=== PATIENT | female | born 2000 | race Hispanic/Latino ===

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

== ENCOUNTER 2024-06-11 06:36 | Inpatient (IN) | payer OTHER ==
[~2024-06-11] VITALS: Ht 154.9 cm; Wt 87.1 kg
[2024-06-11 07:30] LABS: HEMATOCRIT 36.3 % (35.0-50.0); HEMOGLOBIN 12.7 g/dL (12.0-18.0); MCH 31.7 (27-36); MCHC 35.1 g/dl (30-36); MCV 90.4 fl (81-99); RBC 4.02 M/ul (4.3-5.7); RDW 13.4 (10.5-15.0)
[2024-06-11] MEDS ORDERED: CALCIUM CARBONATE 500 MG CHEW PO PRN ×2 (07:30→16:30)
[2024-06-11] MEDS ORDERED: LACTATED RINGER'S 1,000 ML IV PRN (07:30)
[2024-06-11] MEDS ORDERED: OXYTOCIN/0.9 % SODIUM CHLORIDE 30 UNITS/500 ML BAG IV SCH (07:30)
[2024-06-11] MEDS ORDERED: MAGNESIUM HYDROXIDE/AL HYDROX 30 ML CUP PO PRN ×2 (07:30→16:30)
[2024-06-11 07:39] VITALS: BP 128/81
[2024-06-11 08:02] LABS: ABO A; ANTIBODY SCREEN NEGATIVE; RH POSITIVE
[2024-06-11 08:13] LABS: AMPHETAMINES, URINE NEGATIVE (NEGATIVE); BARBITURATES, URINE NEGATIVE (NEGATIVE); BENZODIAZEPINE, URINE NEGATIVE (NEGATIVE); BUPRENORPHINE, URINE NEGATIVE (NEGATIVE); CANNABINOID, URINE NEGATIVE (NEGATIVE); COCAINE, URINE NEGATIVE (NEGATIVE); ECSTASY, URINE NEGATIVE (NEGATIVE); FENTANYL, URINE NEGATIVE (NEGATIVE); METHADONE, URINE NEGATIVE (NEGATIVE); OPIATES, URINE NEGATIVE (NEGATIVE); OXYCODONE, URINE NEGATIVE (NEGATIVE); PHENCYCLIDINE, URINE NEGATIVE (NEGATIVE)
[2024-06-11] MEDS ORDERED: OXYTOCIN/0.9 % SODIUM CHLORIDE 500 ML IV SCH ×2 (11:30→16:30)
[2024-06-11] MEDS ORDERED: ROPIVACAINE 0.2% 200 ML BAG ONE (13:15)
[2024-06-11] MEDS ORDERED: fentaNYL citrate 100 MCG/2 ML VIAL ONE (13:15)
--- NOTE | 2024-06-11 13:58 | PR ---
[facility] [address], [place] [address] Signed Progress Notes IP Datetime Report Generated by CPAdia: 06/11/2024 13:58 PROGRESS NOTES: [id number] Impression: Normal Progression of Labor; Reassuring Heart Rate Procedures: Sterile Vag Exam Plan: Continue Present Management Other Plans: s/p epidural placement by INSURANCE TERRITORY MANAGER Informed Consent Obtain: Vaginal Delivery VITAL SIGNS: [id number] Vital Signs: Reviewed; Within Normal Limits EXAM: [id number] Dilatation: 3.0 Effacement: 80 Station: -3 Contractions: q 3-4 min MEMBRANES: [id number] ROM Note: leaking large amounts of clear fluid. Comments: Pt seen and examined. Doing well. Uncomfortable w/ contractions and desired epidural which was kindly placed by anesthesia. More comfortable. Pitocin at 4. No questions or concerns. Will continue pitocin. Reviewed anticipated course of labor / delivery FETUS A: [id number] FHR Baseline: 125 Variability: Moderate 6-25bpm Accelerations: 15X15 Decelerations: None FHR Category: Category I Presentation: Vertex Comments on Fetus A: No evidence of metabolic acidosis FETUS B: [id number] Signing Physician: Srinivasa Cross DO Copies: ~ *Electronically Signed* 06/11/24 3070 SRINIVASA CROSS (DOMINIC) DO PATIENT NAME: JOSEE GOLDMAN PROGRESS NOTE DATE OF : 00 PHYSICIAN: SRINIVASA CROSS (JD) DO RPT #: [id number] REPORT IS CONFIDENTIAL AND NOT TO BE RELEASED WITHOUT AUTHORIZATION
[2024-06-11] MEDS ORDERED: ROPIVACAINE 0.2% 200 ML BAG EPIDURAL SCH (14:00)
[2024-06-11] MEDS ORDERED: LACTATED RINGER'S 500 ML IV PRN (14:00)
[2024-06-11] MEDS ORDERED: LACTATED RINGER'S 2,000 ML IV ONE (14:00)
[2024-06-11] MEDS ORDERED: ePHEDrine sulfate 5 MG/ML SYRINGE IV PRN (14:00)
[2024-06-11] MEDS ORDERED: ePHEDrine KIT FOR FBC IV ONE (14:57)
--- NOTE | 2024-06-11 15:41 | PR ---
[facility] [address], [place] [address] Signed Progress Notes IP Datetime Report Generated by CPN: 06/11/2024 15:41 PROGRESS NOTES: [id number] Impression: Normal Progression of Labor; Reassuring Heart Rate Procedures: Sterile Vag Exam Plan: Anticipate Vaginal Delivery Other Plans: s/p epidural placement by SENIOR PROJECT COORDINATOR Informed Consent Obtain: Vaginal Delivery VITAL SIGNS: [id number] Vital Signs: Reviewed; Within Normal Limits EXAM: [id number] Dilatation: 10.0 Effacement: 100 Station: 0 Contractions: q 2-3 MEMBRANES: [id number] ROM Note: leaking large amounts of clear fluid. Comments: Pt seen and examined. Complete and feeling some pressure to push. Will set up for vaginal delivery. Anticipate soon FETUS A: [id number] FHR Baseline: 125 Variability: Moderate 6-25bpm Accelerations: 15X15 Decelerations: Early; Late FHR Category: Category II Presentation: Vertex Comments on Fetus A: No evidence of metabolic acidosis FETUS B: [id number] Signing Physician: Srinivasa Cross DO Copies: ~ *Electronically Signed* 06/11/24 1545 SRINIVASA CROSS (DOMINIC) DO PATIENT NAME: JSOEE GOLDMAN PROGRESS NOTE DATE OF : 00 PHYSICIAN: SRINIVASA CROSS (JD) DO RPT #: [id number] REPORT IS CONFIDENTIAL AND NOT TO BE RELEASED WITHOUT AUTHORIZATION
[2024-06-11] MEDS ORDERED: IBUPROFEN 600 MG TAB PO PRN (16:30)
[2024-06-11] MEDS ORDERED: HYDROCORTISONE ACETATE 25 MG SUPP PR PRN (16:30)
[2024-06-11] MEDS ORDERED: ACETAMINOPHEN 325 MG TAB PO PRN (16:30)
[2024-06-11] MEDS ORDERED: HYDROCODONE/ACETA 5/325 TAB PO PRN (16:30)
[2024-06-11] MEDS ORDERED: MAGNESIUM HYDROXIDE 30 ML UDC PO PRN (16:30)
[2024-06-11] MEDS ORDERED: OXYCODONE/APAP 5/325 TAB PO PRN (16:30)
[2024-06-11] MEDS ORDERED: WITCH HAZEL/GLYCERIN 1 EA PAD TOP PRN (16:30)
[2024-06-11] MEDS ORDERED: BENZOCAINE 60 ML AEROSOL TOP PRN (16:30)
[2024-06-11] MEDS ORDERED: SENNOSIDES/DOCUSATE 1 EA TAB PO SCH (21:00)
[2024-06-12 05:22] LABS: HEMATOCRIT 31.4 % (35.0-50.0); HEMOGLOBIN 10.8 g/dL (12.0-18.0); MCH 31.2 (27-36); MCHC 34.5 g/dl (30-36); MCV 90.4 fl (81-99); RBC 3.47 M/ul (4.3-5.7); RDW 13.2 (10.5-15.0)
--- NOTE | 2024-06-12 16:09 | PR ---
[facility] [address] [facility] [place], [place] [address] Signed PP Progress Notes Datetime Report Generated by CPN: 06/12/2024 16:09 SUBJECTIVE: [id number] Pain: Within Normal Limits Nausea/Vomiting: Denies Flatus: Yes Bowel Movement: No Vital Signs: [id number] Vital Signs: Reviewed; Within Normal Limits Cardiovascular: Normal Respiratory: Normal Abdomen/Uterus: Normal Lochia: Normal Vulva/Perineum: Not Done Breasts: Not Done CVA Tenderness: Normal Extremities: Normal Incision: Not Applicable Progress: Normal Exam Comments: Fundus firm U-2 nontender IMPRESSION/PLAN/PROCEDURES: [id number] Impression: Normal Progression Plan: Discharge Progress Notes: Pt seen and examined. Doing well. Ambulating, voiding, and tolerating full diet. Pain and lochia minimal. well. No fevers/chills or concerns. Desires d/c home today. Reviewed d/c instructions and medications. Planning IUD for pp contraception. All questions answered Signing Physician: Srinivasa Cross DO Copies: ~ *Electronically Signed* 06/12/24 3327 SRINIVASA CROSS (DOMINIC) DO PATIENT NAME: JOSEE GOLDMAN PROGRESS NOTE DATE OF : 00 PHYSICIAN: SRINIVASA CROSS (JD) DO RPT #: [id number] REPORT IS CONFIDENTIAL AND NOT TO BE RELEASED WITHOUT AUTHORIZATION
== END 2024-06-12 17:45 | disposition home or self-care (01) | DRG 807 ==
LOC: FBCO 06:36 → FBC 07:24
PROVIDERS: ADMIT Obstetrics & Gynecology; ATTEND Obstetrics & Gynecology
PROC: 10E0XZZ Delivery of Products of Conception, External Approach (ICD-10-PCS; principal; 2024-06-11)
PROC: 3E0R3BZ Introduction of Anesthetic Agent into Spinal Canal, Percutaneous Approach (ICD-10-PCS; 2024-06-11)
PROC: 00HU33Z Insertion of Infusion Device into Spinal Canal, Percutaneous Approach (ICD-10-PCS; 2024-06-11)
PROC: 0HQ9XZZ Repair Perineum Skin, External Approach (ICD-10-PCS; 2024-06-11)
DX: O69.1XX0 Labor and delivery complicated by cord around neck, with compression, not applicable or unspecified (principal); Z37.0 Single live birth; O70.0 First degree perineal laceration during delivery; Z3A.39 39 weeks gestation of pregnancy; Z87.891 Personal history of nicotine dependence
CPT/HCPCS: 01960; 36415; 80307; 85027; 86850; 86900; 86901; A9270; J2795; J3010; J7121